=== PATIENT | male | born 1950 | race African-American/Black ===

== ENCOUNTER 2020-12-01 21:55 | Inpatient (IN) | payer MEDICARE, MEDICAID ==
[2020-12-01] MEDS ORDERED: Milk Of Magnesia 30 ML UDCUP PO PRN (23:07)
[2020-12-01] MEDS ORDERED: diphenhydrAMINE 25 MG CAP PO PRN (23:07)
[2020-12-01] MEDS ORDERED: CHLORPROMAZINE HCL 25 MG PO PRN (23:07)
[2020-12-01] MEDS ORDERED: Montelukast Sodium 10 mg Tablet PO PRN (23:07)
[2020-12-01] MEDS ORDERED: Bisacodyl 10 MG SUPP PR PRN (23:07)
[2020-12-01] MEDS ORDERED: Scopolamine 1.5 mg/72 hour Patch TD SCH (23:15)
[2020-12-01] MEDS ORDERED: Mag-Al Plus 1200 MG/1200 MG/120 MG/30 ML UDCUP PO PRN (23:23)
[2020-12-02] MEDS: Tamsulosin HCl 0.4 MG CAP PO SCH (06:00)
[2020-12-02] MEDS: Levothyroxine Sodium 50 MCG TAB PO SCH (06:01)
[2020-12-02] MEDS: Metoclopramide HCl 10 MG TAB PO SCH ×2 (08:46→21:43)
[2020-12-02] MEDS: Finasteride 5 MG TAB PO SCH (08:46)
[2020-12-02] MEDS: DorzolamidE/Timolol 2%/0.5% Ophth Soln 10 ml Bottle EA EYE SCH ×2 (08:46→21:44)
[2020-12-02] MEDS: Desmopressin 0.2 mg Tablet PO SCH ×2 (08:47→21:42)
[2020-12-02] MEDS ORDERED: Sucralfate 1 GM TAB PO SCH (09:00)
[2020-12-02] MEDS: Amlodipine 5 MG TAB PO SCH (10:46)
[2020-12-02] MEDS: Metoprolol Tartrate 25 MG TAB PO SCH ×2 (10:46→17:08)
[2020-12-02] MEDS: Sucralfate 1 GM TAB PO SCH (11:31)
[2020-12-02] MEDS: Acetaminophen/Codeine 30-300mg Tablet PO PRN (17:08)
[2020-12-02] MEDS: Rosuvastatin 10 MG TAB PO SCH (21:43)
[2020-12-02] MEDS: Melatonin 3 MG TAB PO PRN (21:43)
[2020-12-03] MEDS: Levothyroxine Sodium 50 MCG TAB PO SCH (06:31)
[2020-12-03] MEDS: Tamsulosin HCl 0.4 MG CAP PO SCH (06:31)
[2020-12-03 06:54] VITALS: BMI 26.1
[2020-12-03] MEDS: Metoclopramide HCl 10 MG TAB PO SCH ×3 (08:36→20:37)
[2020-12-03] MEDS: Amlodipine 5 MG TAB PO SCH (08:36)
[2020-12-03] MEDS: Finasteride 5 MG TAB PO SCH (08:36)
[2020-12-03] MEDS: DorzolamidE/Timolol 2%/0.5% Ophth Soln 10 ml Bottle EA EYE SCH ×2 (08:37→20:37)
[2020-12-03] MEDS: Desmopressin 0.2 mg Tablet PO SCH ×2 (08:37→20:35)
[2020-12-03] MEDS: Metoprolol Tartrate 25 MG TAB PO SCH ×2 (08:37→16:53)
[2020-12-03] MEDS: Sucralfate 1 GM TAB PO SCH (11:13)
[2020-12-03] MEDS: Scopolamine 1.5 mg/72 hour Patch TD SCH (16:53)
[2020-12-03] MEDS: Rosuvastatin 10 MG TAB PO SCH (20:36)
[2020-12-03] MEDS: tiZANidine HCl 4 MG TAB PO PRN (20:37)
[2020-12-03] MEDS: Melatonin 3 MG TAB PO PRN (20:37)
[2020-12-04] MEDS: Tamsulosin HCl 0.4 MG CAP PO SCH (05:12)
[2020-12-04] MEDS: Levothyroxine Sodium 50 MCG TAB PO SCH (05:12)
[2020-12-04] MEDS: DorzolamidE/Timolol 2%/0.5% Ophth Soln 10 ml Bottle EA EYE SCH ×2 (08:28→20:36)
[2020-12-04] MEDS: Amlodipine 5 MG TAB PO SCH (08:28)
[2020-12-04] MEDS: Desmopressin 0.2 mg Tablet PO SCH ×2 (08:28→20:35)
[2020-12-04] MEDS: Metoclopramide HCl 10 MG TAB PO SCH ×2 (08:28→20:37)
[2020-12-04] MEDS: Finasteride 5 MG TAB PO SCH (08:28)
[2020-12-04] MEDS: Metoprolol Tartrate 25 MG TAB PO SCH ×2 (08:28→17:47)
[2020-12-04] MEDS: Sucralfate 1 GM TAB PO SCH (11:22)
[2020-12-04] MEDS: Acetaminophen/Codeine 30-300mg Tablet PO PRN (11:23)
[2020-12-04] MEDS: Rosuvastatin 10 MG TAB PO SCH (20:37)
[2020-12-04] MEDS: Melatonin 3 MG TAB PO PRN (20:38)
[2020-12-05 05:36] LABS: #Basophils 0.1 thou/uL (0.0-0.2); #Eosinphils 0.1 thou/uL (0.0-0.7); #Lymphocytes 1.8 thou/uL (1.20-3.40); #Monocytes 0.6 thou/uL (0.11-0.59); #Neutrophils 3.6 thou/uL (1.40-6.50); %Basophils 1.5 % (0.0-1.0); %Lymphocytes 28.3 % (21.0-51.0); %Monocytes 9.4 % (0.0-10.0); %Neutrophils 58.8 % (42.0-75.0); Hemoglobin 12.3 g/dL (14.0-18.0); Mean Corpuscular HGB CONC 32.1 g/dL (32.0-36.0); Mean Corpuscular Hemoglobin 32.1 pg (27.0-31.0); Mean Corpuscular Volume 100.2 fL (78.0-98.0); Mean Platelet Volume 7.3 fL (7.4-10.4); Platelet Count 195 thou/uL (130-400); RBC Distribution Width 11.2 % (11.5-14.5); Red Blood Cell (RBC) Count 3.83 mill/uL (4.70-6.10); White Blood Cell (WBC) Count 6.2 thou/uL (4.8-10.8)
[2020-12-05] MEDS: Tamsulosin HCl 0.4 MG CAP PO SCH (05:41)
[2020-12-05] MEDS: Levothyroxine Sodium 50 MCG TAB PO SCH (05:41)
[2020-12-05 05:44] LABS: Anion Gap 14 mmol/L (10-20); BUN (Urea Nitrogen) 12 mg/dL (8.4-25.7); Calc. Creatinine Clearance 113 mL/min (70-130); Calcium 8.8 mg/dL (7.8-10.44); Carbon Dioxide 23 mmol/L (23-31); Chloride 109 mmol/L (98-107); Glucose 104 mg/dL (80-115); Potassium 3.5 mmol/L (3.5-5.1); Sodium 142 mmol/L (136-145)
[2020-12-05] MEDS: Amlodipine 5 MG TAB PO SCH (09:59)
[2020-12-05] MEDS: Desmopressin 0.2 mg Tablet PO SCH ×2 (10:00→20:40)
[2020-12-05] MEDS: Metoclopramide HCl 10 MG TAB PO SCH ×2 (10:01→20:39)
[2020-12-05] MEDS: Sucralfate 1 GM TAB PO SCH (10:01)
[2020-12-05] MEDS: Metoprolol Tartrate 25 MG TAB PO SCH ×2 (10:01→17:48)
[2020-12-05] MEDS: Fluticasone Propionate Nasal Spray 16 gm Bottle NASAL PRN (10:01)
[2020-12-05] MEDS: Finasteride 5 MG TAB PO SCH (10:01)
[2020-12-05] MEDS: Acetaminophen/Codeine 30-300mg Tablet PO PRN (10:02)
[2020-12-05] MEDS: DorzolamidE/Timolol 2%/0.5% Ophth Soln 10 ml Bottle EA EYE SCH ×2 (10:04→20:40)
[2020-12-05] MEDS: Melatonin 3 MG TAB PO PRN (20:40)
[2020-12-05] MEDS: Rosuvastatin 10 MG TAB PO SCH (20:43)
[2020-12-06] MEDS: Levothyroxine Sodium 50 MCG TAB PO SCH (05:30)
[2020-12-06] MEDS: Tamsulosin HCl 0.4 MG CAP PO SCH (05:30)
[2020-12-06] MEDS: Desmopressin 0.2 mg Tablet PO SCH ×2 (09:36→20:17)
[2020-12-06] MEDS: Metoclopramide HCl 10 MG TAB PO SCH ×2 (09:36→20:17)
[2020-12-06] MEDS: Finasteride 5 MG TAB PO SCH (09:36)
[2020-12-06] MEDS: Metoprolol Tartrate 25 MG TAB PO SCH ×2 (09:36→17:12)
[2020-12-06] MEDS: Amlodipine 5 MG TAB PO SCH (09:36)
[2020-12-06] MEDS: DorzolamidE/Timolol 2%/0.5% Ophth Soln 10 ml Bottle EA EYE SCH ×2 (09:37→20:17)
[2020-12-06] MEDS: Sucralfate 1 GM TAB PO SCH (12:16)
[2020-12-06] MEDS: Acetaminophen/Codeine 30-300mg Tablet PO PRN (13:37)
[2020-12-06] MEDS: Scopolamine 1.5 mg/72 hour Patch TD SCH (17:12)
[2020-12-06] MEDS: Rosuvastatin 10 MG TAB PO SCH (20:16)
[2020-12-06] MEDS: Melatonin 3 MG TAB PO PRN (20:17)
[2020-12-07] MEDS: Tamsulosin HCl 0.4 MG CAP PO SCH (05:13)
[2020-12-07] MEDS: Levothyroxine Sodium 50 MCG TAB PO SCH (05:13)
[2020-12-07] MEDS: Metoclopramide HCl 10 MG TAB PO SCH ×2 (07:59→20:33)
[2020-12-07] MEDS: Metoprolol Tartrate 25 MG TAB PO SCH ×2 (07:59→17:20)
[2020-12-07] MEDS: DorzolamidE/Timolol 2%/0.5% Ophth Soln 10 ml Bottle EA EYE SCH ×2 (07:59→20:36)
[2020-12-07] MEDS: Finasteride 5 MG TAB PO SCH (07:59)
[2020-12-07] MEDS: Amlodipine 5 MG TAB PO SCH (07:59)
[2020-12-07] MEDS: Desmopressin 0.2 mg Tablet PO SCH ×2 (08:34→20:33)
[2020-12-07] MEDS: Sucralfate 1 GM TAB PO SCH (11:43)
[2020-12-07 14:16] LABS: Bilirubin Negative (Negative); Blood, Urine Negative (Negative); Clarity Slightly Cloudy (Clear); Glucose, Urine (Dipstick) Negative (Negative); Ketone, Urine Negative (Negative); Leukocyte Negative (Negative); Nitrite Negative (Negative); Protein, Urine (Dipstick) 100 mg/dL (Neg-Trace); Specific Gravity, Urine 1.025 (1.005-1.030); Urobilinogen > or = 8.0 mg/dL (Less than 2)
[2020-12-07 14:18] LABS: Urine Culture Reflex No No
[2020-12-07 14:28] LABS: Bacteria/HPF 4+ HPF (None Seen); RBC/HPF 0-3 HPF (0-3); Squamous Epithelial 0-3 HPF (0-3); WBC/HPF 21-50 HPF (0-3)
[2020-12-07] MEDS: Acetaminophen/Codeine 30-300mg Tablet PO PRN (15:53)
[2020-12-07] MEDS: Rosuvastatin 10 MG TAB PO SCH (20:33)
[2020-12-07] MEDS: Sulfameth/Trimethoprim DS 800-160mg TAB PO SCH (20:33)
[2020-12-08] MEDS: Levothyroxine Sodium 50 MCG TAB PO SCH (05:29)
[2020-12-08] MEDS: Tamsulosin HCl 0.4 MG CAP PO SCH (05:29)
[2020-12-08] MEDS: Desmopressin 0.2 mg Tablet PO SCH ×2 (09:00→20:04)
[2020-12-08] MEDS: Sulfameth/Trimethoprim DS 800-160mg TAB PO SCH ×2 (09:01→20:05)
[2020-12-08] MEDS: Metoprolol Tartrate 25 MG TAB PO SCH ×2 (09:01→17:42)
[2020-12-08] MEDS: Finasteride 5 MG TAB PO SCH (09:01)
[2020-12-08] MEDS: Amlodipine 5 MG TAB PO SCH (09:01)
[2020-12-08] MEDS: Metoclopramide HCl 10 MG TAB PO SCH ×2 (09:01→20:05)
[2020-12-08] MEDS: DorzolamidE/Timolol 2%/0.5% Ophth Soln 10 ml Bottle EA EYE SCH ×2 (09:02→20:05)
[2020-12-08] MEDS: Fluticasone Propionate Nasal Spray 16 gm Bottle NASAL PRN (09:07)
[2020-12-08] MEDS: Acetaminophen/Codeine 30-300mg Tablet PO PRN (10:31)
[2020-12-08] MEDS: Sucralfate 1 GM TAB PO SCH (12:57)
[2020-12-08] MEDS: Melatonin 3 MG TAB PO PRN (20:04)
[2020-12-08] MEDS: Rosuvastatin 10 MG TAB PO SCH (20:04)
[2020-12-09] MEDS: Tamsulosin HCl 0.4 MG CAP PO SCH (05:28)
[2020-12-09] MEDS: Levothyroxine Sodium 50 MCG TAB PO SCH (05:28)
[2020-12-09] MEDS: DorzolamidE/Timolol 2%/0.5% Ophth Soln 10 ml Bottle EA EYE SCH ×2 (08:42→20:10)
[2020-12-09] MEDS: Acetaminophen/Codeine 30-300mg Tablet PO PRN (08:42)
[2020-12-09] MEDS: Desmopressin 0.2 mg Tablet PO SCH ×2 (08:43→20:09)
[2020-12-09] MEDS: Finasteride 5 MG TAB PO SCH (08:44)
[2020-12-09] MEDS: Metoprolol Tartrate 25 MG TAB PO SCH ×2 (08:44→17:11)
[2020-12-09] MEDS: Metoclopramide HCl 10 MG TAB PO SCH ×2 (08:44→20:10)
[2020-12-09] MEDS: Amlodipine 5 MG TAB PO SCH (08:44)
[2020-12-09] MEDS: Sulfameth/Trimethoprim DS 800-160mg TAB PO SCH ×2 (08:44→20:10)
[2020-12-09] MEDS: tiZANidine HCl 4 MG TAB PO PRN (08:44)
[2020-12-09] MEDS: Sucralfate 1 GM TAB PO SCH (12:15)
[2020-12-09] MEDS: Scopolamine 1.5 mg/72 hour Patch TD SCH (17:11)
[2020-12-09] MEDS: Rosuvastatin 10 MG TAB PO SCH (20:09)
[2020-12-09] MEDS: Melatonin 3 MG TAB PO PRN (20:10)
[2020-12-10] MEDS: Levothyroxine Sodium 50 MCG TAB PO SCH (05:03)
[2020-12-10] MEDS: Tamsulosin HCl 0.4 MG CAP PO SCH (05:03)
[2020-12-10] MEDS: Sulfameth/Trimethoprim DS 800-160mg TAB PO SCH ×2 (08:47→20:19)
[2020-12-10] MEDS: Desmopressin 0.2 mg Tablet PO SCH ×2 (08:47→20:16)
[2020-12-10] MEDS: tiZANidine HCl 4 MG TAB PO PRN (08:47)
[2020-12-10] MEDS: Amlodipine 5 MG TAB PO SCH (08:47)
[2020-12-10] MEDS: Acetaminophen/Codeine 30-300mg Tablet PO PRN (08:47)
[2020-12-10] MEDS: Finasteride 5 MG TAB PO SCH (08:47)
[2020-12-10] MEDS: Metoclopramide HCl 10 MG TAB PO SCH ×2 (08:48→20:17)
[2020-12-10] MEDS: Metoprolol Tartrate 25 MG TAB PO SCH ×2 (08:48→17:11)
[2020-12-10] MEDS: DorzolamidE/Timolol 2%/0.5% Ophth Soln 10 ml Bottle EA EYE SCH ×2 (08:49→20:17)
[2020-12-10] MEDS: Sucralfate 1 GM TAB PO SCH (12:03)
[2020-12-10] MEDS: Melatonin 3 MG TAB PO PRN (20:16)
[2020-12-10] MEDS: Rosuvastatin 10 MG TAB PO SCH (20:16)
[2020-12-11] MEDS: Levothyroxine Sodium 50 MCG TAB PO SCH (05:13)
[2020-12-11] MEDS: Tamsulosin HCl 0.4 MG CAP PO SCH (05:13)
[2020-12-11] MEDS: Amlodipine 5 MG TAB PO SCH (08:26)
[2020-12-11] MEDS: Finasteride 5 MG TAB PO SCH (08:26)
[2020-12-11] MEDS: Metoprolol Tartrate 25 MG TAB PO SCH ×2 (08:26→17:44)
[2020-12-11] MEDS: Metoclopramide HCl 10 MG TAB PO SCH (08:26)
[2020-12-11] MEDS: DorzolamidE/Timolol 2%/0.5% Ophth Soln 10 ml Bottle EA EYE SCH ×2 (08:27→23:15)
[2020-12-11] MEDS: Sulfameth/Trimethoprim DS 800-160mg TAB PO SCH ×2 (08:27→23:15)
[2020-12-11] MEDS: Desmopressin 0.2 mg Tablet PO SCH ×2 (08:27→23:14)
[2020-12-11] MEDS: Acetaminophen/Codeine 30-300mg Tablet PO PRN ×2 (10:27→17:44)
[2020-12-11] MEDS: Sucralfate 1 GM TAB PO SCH (10:27)
[2020-12-11 17:38] VITALS: BP 120/79; TEMP 97.6
[2020-12-11] MEDS: Rosuvastatin 10 MG TAB PO SCH (23:15)
== END 2020-12-12 00:30 | disposition short-term general hospital (02) | DRG 948 ==
LOC: MADMS 21:55
PROVIDERS: ADMIT Family Medicine; ATTEND Family Medicine
DX: R53.1 Weakness (principal); N30.00 Acute cystitis without hematuria; G91.9 Hydrocephalus, unspecified; D62 Acute posthemorrhagic anemia; F03.90 Unspecified dementia, unspecified severity, without behavioral disturbance, psychotic disturbance, mood disturbance, and anxiety; I10 Essential (primary) hypertension; E03.9 Hypothyroidism, unspecified; N40.1 Benign prostatic hyperplasia with lower urinary tract symptoms; F32.9 Major depressive disorder, single episode, unspecified; K21.9 Gastro-esophageal reflux disease without esophagitis; B96.1 Klebsiella pneumoniae [K. pneumoniae] as the cause of diseases classified elsewhere; R53.81 Other malaise; L72.9 Follicular cyst of the skin and subcutaneous tissue, unspecified; H40.9 Unspecified glaucoma; E78.2 Mixed hyperlipidemia; R26.81 Unsteadiness on feet; F79 Unspecified intellectual disabilities; F80.9 Developmental disorder of speech and language, unspecified; R33.8 Other retention of urine; Z98.890 Other specified postprocedural states; Z48.89 Encounter for other specified surgical aftercare; Z98.2 Presence of cerebrospinal fluid drainage device; Z79.51 Long term (current) use of inhaled steroids; Z79.899 Other long term (current) drug therapy; Y83.8 Other surgical procedures as the cause of abnormal reaction of the patient, or of later complication, without mention of misadventure at the time of the procedure
CPT/HCPCS: 36415; 70450; 80048; 81001; 85025; 87077; 87086; 87186

== ENCOUNTER 2020-12-18 10:45 | Inpatient (IN) | payer MEDICARE, MEDICAID ==
[2020-12-18] MEDS ORDERED: Montelukast Sodium 10 mg Tablet PO PRN (23:51)
[2020-12-18] MEDS ORDERED: Milk Of Magnesia 30 ML UDCUP PO PRN (23:51)
[2020-12-19] MEDS ORDERED: Mag-Al Plus 1200 MG/1200 MG/120 MG/30 ML UDCUP PO PRN (00:03)
[2020-12-19] MEDS ORDERED: Desmopressin 0.2 mg Tablet PO SCH ×2 (00:15→09:00)
[2020-12-19 03:32] LABS: Bilirubin Negative (Negative); Blood, Urine Large (Negative); Clarity Clear (Clear); Glucose, Urine (Dipstick) Negative (Negative); Ketone, Urine Negative (Negative); Leukocyte Negative (Negative); Nitrite Negative (Negative); Protein, Urine (Dipstick) > or equal to 300 mg/dL (Neg-Trace); Urobilinogen 0.2 mg/dL (Less than 2)
[2020-12-19 03:33] LABS: Bacteria/HPF Rare-Few HPF (None Seen); RBC/HPF Greater than 50 HPF (0-3); Specific Gravity, Urine 1.026 (1.002-1.036); Squamous Epithelial 0-3 HPF (0-3); WBC/HPF 0-3 HPF (0-3)
[2020-12-19] MEDS: Levothyroxine Sodium 50 MCG TAB PO SCH (05:50)
[2020-12-19] MEDS: Tamsulosin HCl 0.4 MG CAP PO SCH (05:50)
[2020-12-19 08:03] LABS: #Basophils 0.1 thou/uL (0.0-0.2); #Lymphocytes 1.4 thou/uL (1.20-3.40); #Monocytes 0.4 thou/uL (0.11-0.59); #Neutrophils 2.3 thou/uL (1.40-6.50); %Basophils 1.7 % (0.0-1.0); %Eosinophils 1.1 % (0.0-10.0); %Lymphocytes 32.7 % (21.0-51.0); %Monocytes 10.1 % (0.0-10.0); %Neutrophils 54.4 % (42.0-75.0); Hemoglobin 12.7 g/dL (14.0-18.0); Mean Corpuscular HGB CONC 31.2 g/dL (32.0-36.0); Mean Corpuscular Hemoglobin 31.1 pg (27.0-31.0); Mean Corpuscular Volume 99.7 fL (78.0-98.0); Mean Platelet Volume 7.1 fL (7.4-10.4); Platelet Count 220 thou/uL (130-400); RBC Distribution Width 10.7 % (11.5-14.5); Red Blood Cell (RBC) Count 4.07 mill/uL (4.70-6.10); White Blood Cell (WBC) Count 4.2 thou/uL (4.8-10.8)
[2020-12-19 08:11] LABS: Anion Gap 12 mmol/L (10-20); BUN (Urea Nitrogen) 18 mg/dL (8.4-25.7); Calc. Creatinine Clearance 91 mL/min (70-130); Calcium 9.2 mg/dL (7.8-10.44); Carbon Dioxide 24 mmol/L (23-31); Chloride 104 mmol/L (98-107); Glucose 98 mg/dL (80-115); Sodium 136 mmol/L (136-145)
[2020-12-19] MEDS ORDERED: DorzolamidE/Timolol 2%/0.5% Ophth Soln 10 ml Bottle EA EYE SCH (09:00)
[2020-12-19] MEDS: Amlodipine 5 MG TAB PO SCH (09:57)
[2020-12-19] MEDS: Cyanocobalamin (Vitamin B-12) 1,000 MCG TAB PO SCH (09:59)
[2020-12-19] MEDS: Cefdinir 300 MG CAP PO SCH ×2 (09:59→20:12)
[2020-12-19] MEDS: Sucralfate 1 GM TAB PO SCH (10:01)
[2020-12-19] MEDS: Saccharomyces boulardii 250 MG CAP PO SCH (10:01)
[2020-12-19] MEDS: Finasteride 5 MG TAB PO SCH (10:02)
[2020-12-19] MEDS: Multivitamin W/ Minerals 1 TAB PO SCH (10:02)
[2020-12-19] MEDS: Folic Acid 1 MG TAB PO SCH (10:09)
[2020-12-19] MEDS: DorzolamidE/Timolol 2%/0.5% Ophth Soln 10 ml Bottle EA EYE SCH ×2 (10:30→20:14)
[2020-12-19] MEDS: Rosuvastatin 10 MG TAB PO SCH (20:12)
[2020-12-19] MEDS: Bisacodyl 10 MG SUPP PR PRN (20:21)
[2020-12-19] MEDS ORDERED: Non-Formulary Item 1 EACH (Rosuvastatin [Crestor] 20 MG Tab) PO SCH (21:00)
[2020-12-20] MEDS: Levothyroxine Sodium 50 MCG TAB PO SCH (05:17)
[2020-12-20] MEDS: Tamsulosin HCl 0.4 MG CAP PO SCH (05:17)
[2020-12-20] MEDS: Cyanocobalamin (Vitamin B-12) 1,000 MCG TAB PO SCH (08:20)
[2020-12-20] MEDS: Amlodipine 5 MG TAB PO SCH (08:20)
[2020-12-20] MEDS: Folic Acid 1 MG TAB PO SCH (08:20)
[2020-12-20] MEDS: Finasteride 5 MG TAB PO SCH (08:20)
[2020-12-20] MEDS: Sucralfate 1 GM TAB PO SCH (08:21)
[2020-12-20] MEDS: DorzolamidE/Timolol 2%/0.5% Ophth Soln 10 ml Bottle EA EYE SCH ×2 (08:21→20:48)
[2020-12-20] MEDS: Saccharomyces boulardii 250 MG CAP PO SCH (08:21)
[2020-12-20] MEDS: Multivitamin W/ Minerals 1 TAB PO SCH (08:21)
[2020-12-20] MEDS: Rosuvastatin 10 MG TAB PO SCH (20:48)
[2020-12-21] MEDS: Levothyroxine Sodium 50 MCG TAB PO SCH (07:12)
[2020-12-21] MEDS: Tamsulosin HCl 0.4 MG CAP PO SCH (07:12)
[2020-12-21] MEDS: Folic Acid 1 MG TAB PO SCH (08:04)
[2020-12-21] MEDS: Amlodipine 5 MG TAB PO SCH (08:04)
[2020-12-21] MEDS: Multivitamin W/ Minerals 1 TAB PO SCH (08:04)
[2020-12-21] MEDS: Saccharomyces boulardii 250 MG CAP PO SCH (08:04)
[2020-12-21] MEDS: Finasteride 5 MG TAB PO SCH (08:04)
[2020-12-21] MEDS: Sucralfate 1 GM TAB PO SCH (08:04)
[2020-12-21] MEDS: Cyanocobalamin (Vitamin B-12) 1,000 MCG TAB PO SCH (08:05)
[2020-12-21] MEDS: DorzolamidE/Timolol 2%/0.5% Ophth Soln 10 ml Bottle EA EYE SCH ×2 (08:08→21:43)
[2020-12-21] MEDS: Rosuvastatin 10 MG TAB PO SCH (20:33)
[2020-12-22] MEDS: Levothyroxine Sodium 50 MCG TAB PO SCH (05:13)
[2020-12-22] MEDS: Tamsulosin HCl 0.4 MG CAP PO SCH (05:13)
[2020-12-22] MEDS: Acetaminophen 325 MG TAB PO PRN ×2 (09:03→15:08)
[2020-12-22] MEDS: Amlodipine 5 MG TAB PO SCH (09:05)
[2020-12-22] MEDS: Saccharomyces boulardii 250 MG CAP PO SCH (09:05)
[2020-12-22] MEDS: Finasteride 5 MG TAB PO SCH (09:05)
[2020-12-22] MEDS: Multivitamin W/ Minerals 1 TAB PO SCH (09:06)
[2020-12-22] MEDS: Cyanocobalamin (Vitamin B-12) 1,000 MCG TAB PO SCH (09:06)
[2020-12-22] MEDS: Folic Acid 1 MG TAB PO SCH (09:06)
[2020-12-22] MEDS: Fluticasone Propionate Nasal Spray 16 gm Bottle NASAL PRN (09:06)
[2020-12-22] MEDS: Sucralfate 1 GM TAB PO SCH (09:06)
[2020-12-22] MEDS: DorzolamidE/Timolol 2%/0.5% Ophth Soln 10 ml Bottle EA EYE SCH ×2 (09:06→20:41)
[2020-12-22] MEDS: Nystatin 500,000 UNITS/5 ML UDCUP SSP SCH (17:24)
[2020-12-22] MEDS: Rosuvastatin 10 MG TAB PO SCH (20:40)
[2020-12-23] MEDS: Nystatin 500,000 UNITS/5 ML UDCUP SSP SCH ×5 (00:24→23:50)
[2020-12-23] MEDS: Tamsulosin HCl 0.4 MG CAP PO SCH (05:32)
[2020-12-23] MEDS: Levothyroxine Sodium 50 MCG TAB PO SCH (05:33)
[2020-12-23] MEDS: Ferrous Sulfate 325 MG TAB PO SCH (08:31)
[2020-12-23] MEDS: Amlodipine 5 MG TAB PO SCH (08:32)
[2020-12-23] MEDS: Finasteride 5 MG TAB PO SCH (08:33)
[2020-12-23] MEDS: DorzolamidE/Timolol 2%/0.5% Ophth Soln 10 ml Bottle EA EYE SCH ×2 (08:33→20:00)
[2020-12-23] MEDS: Cyanocobalamin (Vitamin B-12) 1,000 MCG TAB PO SCH (08:33)
[2020-12-23] MEDS: Folic Acid 1 MG TAB PO SCH (08:34)
[2020-12-23] MEDS: Sucralfate 1 GM TAB PO SCH (08:34)
[2020-12-23] MEDS: Saccharomyces boulardii 250 MG CAP PO SCH (08:34)
[2020-12-23] MEDS: Rosuvastatin 10 MG TAB PO SCH (20:00)
[2020-12-24] MEDS: Nystatin 500,000 UNITS/5 ML UDCUP SSP SCH ×4 (05:05→23:48)
[2020-12-24] MEDS: Levothyroxine Sodium 50 MCG TAB PO SCH (05:06)
[2020-12-24] MEDS: Tamsulosin HCl 0.4 MG CAP PO SCH (05:06)
[2020-12-24] MEDS: Ferrous Sulfate 325 MG TAB PO SCH (09:52)
[2020-12-24] MEDS: Cyanocobalamin (Vitamin B-12) 1,000 MCG TAB PO SCH (09:52)
[2020-12-24] MEDS: Folic Acid 1 MG TAB PO SCH (09:53)
[2020-12-24] MEDS: Amlodipine 5 MG TAB PO SCH (09:53)
[2020-12-24] MEDS: Finasteride 5 MG TAB PO SCH (09:53)
[2020-12-24] MEDS: Saccharomyces boulardii 250 MG CAP PO SCH (09:53)
[2020-12-24] MEDS: Sucralfate 1 GM TAB PO SCH (09:53)
[2020-12-24] MEDS: DorzolamidE/Timolol 2%/0.5% Ophth Soln 10 ml Bottle EA EYE SCH ×2 (09:53→20:51)
[2020-12-24] MEDS: Rosuvastatin 10 MG TAB PO SCH (20:51)
[2020-12-25] MEDS: Tamsulosin HCl 0.4 MG CAP PO SCH ×2 (05:55→20:09)
[2020-12-25] MEDS: Nystatin 500,000 UNITS/5 ML UDCUP SSP SCH ×3 (05:55→18:03)
[2020-12-25] MEDS: Levothyroxine Sodium 50 MCG TAB PO SCH (05:55)
[2020-12-25] MEDS: Amlodipine 5 MG TAB PO SCH (09:27)
[2020-12-25] MEDS: Folic Acid 1 MG TAB PO SCH (09:27)
[2020-12-25] MEDS: Finasteride 5 MG TAB PO SCH (09:29)
[2020-12-25] MEDS: Sucralfate 1 GM TAB PO SCH ×2 (09:29→16:37)
[2020-12-25] MEDS: Cyanocobalamin (Vitamin B-12) 1,000 MCG TAB PO SCH (09:29)
[2020-12-25] MEDS: Ferrous Sulfate 325 MG TAB PO SCH (09:29)
[2020-12-25] MEDS: Saccharomyces boulardii 250 MG CAP PO SCH (09:29)
[2020-12-25] MEDS: DorzolamidE/Timolol 2%/0.5% Ophth Soln 10 ml Bottle EA EYE SCH ×2 (09:30→20:09)
[2020-12-25] MEDS: Acetaminophen 325 MG TAB PO PRN (11:29)
[2020-12-25] MEDS: Rosuvastatin 10 MG TAB PO SCH (20:08)
[2020-12-26] MEDS: Nystatin 500,000 UNITS/5 ML UDCUP SSP SCH ×5 (00:45→23:11)
[2020-12-26] MEDS: Levothyroxine Sodium 50 MCG TAB PO SCH (05:10)
[2020-12-26] MEDS: Tamsulosin HCl 0.4 MG CAP PO SCH ×2 (08:31→19:59)
[2020-12-26] MEDS: Ferrous Sulfate 325 MG TAB PO SCH (08:32)
[2020-12-26] MEDS: Saccharomyces boulardii 250 MG CAP PO SCH (08:32)
[2020-12-26] MEDS: Cyanocobalamin (Vitamin B-12) 1,000 MCG TAB PO SCH (08:32)
[2020-12-26] MEDS: Amlodipine 5 MG TAB PO SCH (08:34)
[2020-12-26] MEDS: Sucralfate 1 GM TAB PO SCH ×2 (08:34→16:38)
[2020-12-26] MEDS: Finasteride 5 MG TAB PO SCH (08:34)
[2020-12-26] MEDS: Folic Acid 1 MG TAB PO SCH (08:34)
[2020-12-26] MEDS: DorzolamidE/Timolol 2%/0.5% Ophth Soln 10 ml Bottle EA EYE SCH ×2 (08:47→19:59)
[2020-12-26] MEDS: Rosuvastatin 10 MG TAB PO SCH (19:59)
[2020-12-26] MEDS: Bisacodyl 10 MG SUPP PR PRN (23:11)
[2020-12-27] MEDS: Nystatin 500,000 UNITS/5 ML UDCUP SSP SCH ×3 (05:13→17:40)
[2020-12-27] MEDS: Levothyroxine Sodium 50 MCG TAB PO SCH (05:14)
[2020-12-27] MEDS: Saccharomyces boulardii 250 MG CAP PO SCH (09:16)
[2020-12-27] MEDS: Amlodipine 5 MG TAB PO SCH (09:16)
[2020-12-27] MEDS: Folic Acid 1 MG TAB PO SCH (09:24)
[2020-12-27] MEDS: Sucralfate 1 GM TAB PO SCH ×2 (09:24→17:40)
[2020-12-27] MEDS: Cyanocobalamin (Vitamin B-12) 1,000 MCG TAB PO SCH (09:24)
[2020-12-27] MEDS: Finasteride 5 MG TAB PO SCH (09:24)
[2020-12-27] MEDS: Tamsulosin HCl 0.4 MG CAP PO SCH ×2 (09:24→20:57)
[2020-12-27] MEDS: Ferrous Sulfate 325 MG TAB PO SCH (09:24)
[2020-12-27] MEDS: DorzolamidE/Timolol 2%/0.5% Ophth Soln 10 ml Bottle EA EYE SCH ×2 (09:25→20:55)
[2020-12-27] MEDS: Rosuvastatin 10 MG TAB PO SCH (20:56)
[2020-12-28] MEDS: Nystatin 500,000 UNITS/5 ML UDCUP SSP SCH ×4 (00:16→18:27)
[2020-12-28] MEDS: Levothyroxine Sodium 50 MCG TAB PO SCH (05:05)
[2020-12-28] MEDS: Finasteride 5 MG TAB PO SCH (08:49)
[2020-12-28] MEDS: Saccharomyces boulardii 250 MG CAP PO SCH (08:49)
[2020-12-28] MEDS: Amlodipine 5 MG TAB PO SCH (08:50)
[2020-12-28] MEDS: Folic Acid 1 MG TAB PO SCH (08:50)
[2020-12-28] MEDS: DorzolamidE/Timolol 2%/0.5% Ophth Soln 10 ml Bottle EA EYE SCH ×2 (08:50→21:07)
[2020-12-28] MEDS: Cyanocobalamin (Vitamin B-12) 1,000 MCG TAB PO SCH (08:50)
[2020-12-28] MEDS: Tamsulosin HCl 0.4 MG CAP PO SCH ×2 (08:50→21:07)
[2020-12-28] MEDS: Sucralfate 1 GM TAB PO SCH ×2 (08:50→17:02)
[2020-12-28] MEDS: Ferrous Sulfate 325 MG TAB PO SCH (08:50)
[2020-12-28] MEDS: Rosuvastatin 10 MG TAB PO SCH (21:07)
[2020-12-29] MEDS: Nystatin 500,000 UNITS/5 ML UDCUP SSP SCH ×4 (00:42→17:28)
[2020-12-29] MEDS: Levothyroxine Sodium 50 MCG TAB PO SCH (05:19)
[2020-12-29] MEDS: Sucralfate 1 GM TAB PO SCH ×2 (05:19→17:28)
[2020-12-29] MEDS: Tamsulosin HCl 0.4 MG CAP PO SCH ×2 (08:56→21:01)
[2020-12-29] MEDS: Ferrous Sulfate 325 MG TAB PO SCH (08:56)
[2020-12-29] MEDS: Finasteride 5 MG TAB PO SCH (08:57)
[2020-12-29] MEDS: Amlodipine 5 MG TAB PO SCH (08:57)
[2020-12-29] MEDS: Folic Acid 1 MG TAB PO SCH (08:57)
[2020-12-29] MEDS: Cyanocobalamin (Vitamin B-12) 1,000 MCG TAB PO SCH (08:57)
[2020-12-29] MEDS: DorzolamidE/Timolol 2%/0.5% Ophth Soln 10 ml Bottle EA EYE SCH ×2 (08:57→21:00)
[2020-12-29] MEDS: Saccharomyces boulardii 250 MG CAP PO SCH (08:57)
[2020-12-29] MEDS: Rosuvastatin 10 MG TAB PO SCH (21:01)
[2020-12-30] MEDS: Nystatin 500,000 UNITS/5 ML UDCUP SSP SCH ×5 (01:03→23:46)
[2020-12-30] MEDS: Levothyroxine Sodium 50 MCG TAB PO SCH (05:40)
[2020-12-30] MEDS: Sucralfate 1 GM TAB PO SCH ×2 (05:40→16:48)
[2020-12-30] MEDS: Ferrous Sulfate 325 MG TAB PO SCH (08:46)
[2020-12-30] MEDS: Folic Acid 1 MG TAB PO SCH (08:46)
[2020-12-30] MEDS: Cyanocobalamin (Vitamin B-12) 1,000 MCG TAB PO SCH (08:47)
[2020-12-30] MEDS: Finasteride 5 MG TAB PO SCH (08:47)
[2020-12-30] MEDS: Tamsulosin HCl 0.4 MG CAP PO SCH ×2 (08:47→21:02)
[2020-12-30] MEDS: Saccharomyces boulardii 250 MG CAP PO SCH (08:47)
[2020-12-30] MEDS: Amlodipine 5 MG TAB PO SCH (08:47)
[2020-12-30] MEDS: DorzolamidE/Timolol 2%/0.5% Ophth Soln 10 ml Bottle EA EYE SCH ×2 (08:47→21:01)
[2020-12-30] MEDS: Acetaminophen 325 MG TAB PO PRN (21:02)
[2020-12-30] MEDS: Rosuvastatin 10 MG TAB PO SCH (21:02)
[2020-12-31] MEDS: Levothyroxine Sodium 50 MCG TAB PO SCH (05:53)
[2020-12-31] MEDS: Sucralfate 1 GM TAB PO SCH ×2 (05:53→16:47)
[2020-12-31] MEDS: Nystatin 500,000 UNITS/5 ML UDCUP SSP SCH ×4 (05:53→23:15)
[2020-12-31] MEDS: Finasteride 5 MG TAB PO SCH (08:30)
[2020-12-31] MEDS: Amlodipine 5 MG TAB PO SCH (08:30)
[2020-12-31] MEDS: Saccharomyces boulardii 250 MG CAP PO SCH (08:30)
[2020-12-31] MEDS: Folic Acid 1 MG TAB PO SCH (08:30)
[2020-12-31] MEDS: Tamsulosin HCl 0.4 MG CAP PO SCH ×2 (08:30→21:41)
[2020-12-31] MEDS: Cyanocobalamin (Vitamin B-12) 1,000 MCG TAB PO SCH (08:30)
[2020-12-31] MEDS: Ferrous Sulfate 325 MG TAB PO SCH (08:30)
[2020-12-31] MEDS: DorzolamidE/Timolol 2%/0.5% Ophth Soln 10 ml Bottle EA EYE SCH ×2 (08:31→21:41)
[2020-12-31] MEDS: Acetaminophen 325 MG TAB PO PRN (21:41)
[2020-12-31] MEDS: Rosuvastatin 10 MG TAB PO SCH (21:41)
[2021-01-01] MEDS: Sucralfate 1 GM TAB PO SCH ×2 (05:30→17:15)
[2021-01-01] MEDS: Levothyroxine Sodium 50 MCG TAB PO SCH (05:30)
[2021-01-01] MEDS: Nystatin 500,000 UNITS/5 ML UDCUP SSP SCH ×4 (05:30→23:51)
[2021-01-01] MEDS: Folic Acid 1 MG TAB PO SCH (08:38)
[2021-01-01] MEDS: Finasteride 5 MG TAB PO SCH (08:38)
[2021-01-01] MEDS: Tamsulosin HCl 0.4 MG CAP PO SCH ×2 (08:38→20:11)
[2021-01-01] MEDS: Ferrous Sulfate 325 MG TAB PO SCH (08:38)
[2021-01-01] MEDS: DorzolamidE/Timolol 2%/0.5% Ophth Soln 10 ml Bottle EA EYE SCH ×2 (08:38→20:11)
[2021-01-01] MEDS: Acetaminophen 325 MG TAB PO PRN (08:39)
[2021-01-01] MEDS: Amlodipine 5 MG TAB PO SCH (08:40)
[2021-01-01] MEDS: Cyanocobalamin (Vitamin B-12) 1,000 MCG TAB PO SCH (08:41)
[2021-01-01] MEDS: Saccharomyces boulardii 250 MG CAP PO SCH (08:41)
[2021-01-01] MEDS: Rosuvastatin 10 MG TAB PO SCH (20:11)
[2021-01-02] MEDS: Nystatin 500,000 UNITS/5 ML UDCUP SSP SCH ×3 (05:27→17:18)
[2021-01-02] MEDS: Levothyroxine Sodium 50 MCG TAB PO SCH (05:27)
[2021-01-02] MEDS: Sucralfate 1 GM TAB PO SCH ×2 (05:59→16:35)
[2021-01-02] MEDS: Amlodipine 5 MG TAB PO SCH (08:12)
[2021-01-02] MEDS: Folic Acid 1 MG TAB PO SCH (08:12)
[2021-01-02] MEDS: Tamsulosin HCl 0.4 MG CAP PO SCH ×2 (08:12→20:30)
[2021-01-02] MEDS: DorzolamidE/Timolol 2%/0.5% Ophth Soln 10 ml Bottle EA EYE SCH ×2 (08:12→20:31)
[2021-01-02] MEDS: Finasteride 5 MG TAB PO SCH (08:12)
[2021-01-02] MEDS: Cyanocobalamin (Vitamin B-12) 1,000 MCG TAB PO SCH (08:12)
[2021-01-02] MEDS: Saccharomyces boulardii 250 MG CAP PO SCH (08:12)
[2021-01-02] MEDS: Ferrous Sulfate 325 MG TAB PO SCH (08:13)
[2021-01-02] MEDS: Rosuvastatin 10 MG TAB PO SCH (20:30)
[2021-01-02] MEDS ORDERED: Acetaminophen 325 MG TAB PO PRN (21:35)
[2021-01-03] MEDS: Nystatin 500,000 UNITS/5 ML UDCUP SSP SCH ×4 (00:11→17:10)
[2021-01-03] MEDS: Levothyroxine Sodium 50 MCG TAB PO SCH (05:11)
[2021-01-03] MEDS: Sucralfate 1 GM TAB PO SCH ×2 (06:10→15:30)
[2021-01-03] MEDS: Amlodipine 5 MG TAB PO SCH (08:11)
[2021-01-03] MEDS: Saccharomyces boulardii 250 MG CAP PO SCH (08:11)
[2021-01-03] MEDS: Ferrous Sulfate 325 MG TAB PO SCH (08:11)
[2021-01-03] MEDS: Finasteride 5 MG TAB PO SCH (08:11)
[2021-01-03] MEDS: Tamsulosin HCl 0.4 MG CAP PO SCH ×2 (08:11→20:45)
[2021-01-03] MEDS: Folic Acid 1 MG TAB PO SCH (08:11)
[2021-01-03] MEDS: Cyanocobalamin (Vitamin B-12) 1,000 MCG TAB PO SCH (08:12)
[2021-01-03] MEDS: DorzolamidE/Timolol 2%/0.5% Ophth Soln 10 ml Bottle EA EYE SCH ×2 (08:12→20:46)
[2021-01-03] MEDS: Rosuvastatin 10 MG TAB PO SCH (20:45)
[2021-01-04] MEDS: Nystatin 500,000 UNITS/5 ML UDCUP SSP SCH ×5 (00:50→23:38)
[2021-01-04] MEDS: Sucralfate 1 GM TAB PO SCH ×2 (05:39→16:56)
[2021-01-04] MEDS: Levothyroxine Sodium 50 MCG TAB PO SCH (05:39)
[2021-01-04] MEDS: Saccharomyces boulardii 250 MG CAP PO SCH (08:19)
[2021-01-04] MEDS: Tamsulosin HCl 0.4 MG CAP PO SCH ×2 (08:19→21:16)
[2021-01-04] MEDS: Cyanocobalamin (Vitamin B-12) 1,000 MCG TAB PO SCH (08:19)
[2021-01-04] MEDS: Ferrous Sulfate 325 MG TAB PO SCH (08:19)
[2021-01-04] MEDS: Amlodipine 5 MG TAB PO SCH (08:19)
[2021-01-04] MEDS: Finasteride 5 MG TAB PO SCH (08:19)
[2021-01-04] MEDS: Folic Acid 1 MG TAB PO SCH (08:20)
[2021-01-04] MEDS: DorzolamidE/Timolol 2%/0.5% Ophth Soln 10 ml Bottle EA EYE SCH ×2 (08:21→21:19)
[2021-01-04] MEDS: Rosuvastatin 10 MG TAB PO SCH (21:15)
[2021-01-04] MEDS: Acetaminophen 325 MG TAB PO PRN (21:16)
[2021-01-05] MEDS: Nystatin 500,000 UNITS/5 ML UDCUP SSP SCH ×3 (05:16→17:18)
[2021-01-05] MEDS: Sucralfate 1 GM TAB PO SCH ×2 (05:16→17:18)
[2021-01-05] MEDS: Levothyroxine Sodium 50 MCG TAB PO SCH (05:16)
[2021-01-05] MEDS: Cyanocobalamin (Vitamin B-12) 1,000 MCG TAB PO SCH (08:36)
[2021-01-05] MEDS: Amlodipine 5 MG TAB PO SCH (08:36)
[2021-01-05] MEDS: Folic Acid 1 MG TAB PO SCH (08:36)
[2021-01-05] MEDS: Ferrous Sulfate 325 MG TAB PO SCH (08:36)
[2021-01-05] MEDS: Tamsulosin HCl 0.4 MG CAP PO SCH ×2 (08:36→20:23)
[2021-01-05] MEDS: Finasteride 5 MG TAB PO SCH (08:36)
[2021-01-05] MEDS: Saccharomyces boulardii 250 MG CAP PO SCH (08:37)
[2021-01-05] MEDS: Acetaminophen 500 MG TAB PO PRN (08:37)
[2021-01-05] MEDS: DorzolamidE/Timolol 2%/0.5% Ophth Soln 10 ml Bottle EA EYE SCH ×2 (08:39→20:23)
[2021-01-05] MEDS: Rosuvastatin 10 MG TAB PO SCH (20:23)
[2021-01-06] MEDS: Nystatin 500,000 UNITS/5 ML UDCUP SSP SCH ×5 (01:05→23:24)
[2021-01-06] MEDS: Sucralfate 1 GM TAB PO SCH ×2 (05:45→17:18)
[2021-01-06] MEDS: Levothyroxine Sodium 50 MCG TAB PO SCH (05:45)
[2021-01-06] MEDS: Finasteride 5 MG TAB PO SCH (08:30)
[2021-01-06] MEDS: Folic Acid 1 MG TAB PO SCH (08:30)
[2021-01-06] MEDS: Amlodipine 5 MG TAB PO SCH (08:30)
[2021-01-06] MEDS: DorzolamidE/Timolol 2%/0.5% Ophth Soln 10 ml Bottle EA EYE SCH ×2 (08:30→20:28)
[2021-01-06] MEDS: Tamsulosin HCl 0.4 MG CAP PO SCH ×2 (08:30→20:28)
[2021-01-06] MEDS: Cyanocobalamin (Vitamin B-12) 1,000 MCG TAB PO SCH (08:30)
[2021-01-06] MEDS: Ferrous Sulfate 325 MG TAB PO SCH (08:30)
[2021-01-06] MEDS: Saccharomyces boulardii 250 MG CAP PO SCH (08:30)
[2021-01-06] MEDS: Acetaminophen 325 MG TAB PO PRN (08:32)
[2021-01-06] MEDS: Rosuvastatin 10 MG TAB PO SCH (20:28)
[2021-01-07] MEDS: Levothyroxine Sodium 50 MCG TAB PO SCH (05:31)
[2021-01-07] MEDS: Sucralfate 1 GM TAB PO SCH ×2 (05:31→17:07)
[2021-01-07] MEDS: Nystatin 500,000 UNITS/5 ML UDCUP SSP SCH ×4 (05:31→23:00)
[2021-01-07] MEDS: Tamsulosin HCl 0.4 MG CAP PO SCH ×2 (09:35→20:09)
[2021-01-07] MEDS: Folic Acid 1 MG TAB PO SCH (09:35)
[2021-01-07] MEDS: Finasteride 5 MG TAB PO SCH (09:35)
[2021-01-07] MEDS: Amlodipine 5 MG TAB PO SCH (09:35)
[2021-01-07] MEDS: Cyanocobalamin (Vitamin B-12) 1,000 MCG TAB PO SCH (09:35)
[2021-01-07] MEDS: DorzolamidE/Timolol 2%/0.5% Ophth Soln 10 ml Bottle EA EYE SCH ×2 (09:35→20:10)
[2021-01-07] MEDS: Ferrous Sulfate 325 MG TAB PO SCH (09:35)
[2021-01-07] MEDS: Saccharomyces boulardii 250 MG CAP PO SCH (09:35)
[2021-01-07] MEDS: Rosuvastatin 10 MG TAB PO SCH (20:09)
[2021-01-08] MEDS: Levothyroxine Sodium 50 MCG TAB PO SCH (05:09)
[2021-01-08] MEDS: Nystatin 500,000 UNITS/5 ML UDCUP SSP SCH ×3 (05:09→17:43)
[2021-01-08] MEDS: Sucralfate 1 GM TAB PO SCH ×2 (05:29→15:37)
[2021-01-08] MEDS ORDERED: Magnesium Citrate 300 ML BOT ONE (08:37)
[2021-01-08] MEDS: Cyanocobalamin (Vitamin B-12) 1,000 MCG TAB PO SCH (09:22)
[2021-01-08] MEDS: Amlodipine 5 MG TAB PO SCH (09:22)
[2021-01-08] MEDS: Ferrous Sulfate 325 MG TAB PO SCH (09:22)
[2021-01-08] MEDS: Saccharomyces boulardii 250 MG CAP PO SCH (09:22)
[2021-01-08] MEDS: Folic Acid 1 MG TAB PO SCH (09:22)
[2021-01-08] MEDS: Finasteride 5 MG TAB PO SCH (09:22)
[2021-01-08] MEDS: Fluticasone Propionate Nasal Spray 16 gm Bottle NASAL PRN (09:23)
[2021-01-08] MEDS: Tamsulosin HCl 0.4 MG CAP PO SCH ×2 (09:23→20:32)
[2021-01-08] MEDS: DorzolamidE/Timolol 2%/0.5% Ophth Soln 10 ml Bottle EA EYE SCH ×2 (09:23→20:32)
[2021-01-08] MEDS ORDERED: Mag-Al Plus 1200 MG/1200 MG/120 MG/30 ML UDCUP PO PRN (13:46)
[2021-01-08] MEDS ORDERED: Polyethylene Glycol 3350 17 GM Packet PO PRN (13:46)
[2021-01-08] MEDS: Rosuvastatin 10 MG TAB PO SCH (20:32)
[2021-01-08] MEDS: Acetaminophen 325 MG TAB PO PRN (20:33)
[2021-01-09] MEDS: Nystatin 500,000 UNITS/5 ML UDCUP SSP SCH ×4 (00:19→17:11)
[2021-01-09] MEDS: Sucralfate 1 GM TAB PO SCH ×2 (05:33→17:10)
[2021-01-09] MEDS: Levothyroxine Sodium 50 MCG TAB PO SCH (05:33)
[2021-01-09] MEDS: DorzolamidE/Timolol 2%/0.5% Ophth Soln 10 ml Bottle EA EYE SCH ×2 (08:22→20:29)
[2021-01-09] MEDS: Folic Acid 1 MG TAB PO SCH (08:23)
[2021-01-09] MEDS: Amlodipine 5 MG TAB PO SCH (08:23)
[2021-01-09] MEDS: Finasteride 5 MG TAB PO SCH (08:23)
[2021-01-09] MEDS: Cyanocobalamin (Vitamin B-12) 1,000 MCG TAB PO SCH (08:23)
[2021-01-09] MEDS: Ferrous Sulfate 325 MG TAB PO SCH (08:23)
[2021-01-09] MEDS: Saccharomyces boulardii 250 MG CAP PO SCH (08:23)
[2021-01-09] MEDS: Tamsulosin HCl 0.4 MG CAP PO SCH ×2 (08:23→20:29)
[2021-01-09] MEDS: Rosuvastatin 10 MG TAB PO SCH (20:29)
[2021-01-10] MEDS: Nystatin 500,000 UNITS/5 ML UDCUP SSP SCH ×3 (00:19→13:06)
[2021-01-10 05:21] LABS: Hemoglobin 11.3 g/dL (14.0-18.0); Mean Corpuscular HGB CONC 32.3 g/dL (32.0-36.0); Mean Corpuscular Hemoglobin 32.3 pg (27.0-31.0); Mean Corpuscular Volume 100.1 fL (78.0-98.0); Mean Platelet Volume 7.3 fL (7.4-10.4); Platelet Count 180 thou/uL (130-400); RBC Distribution Width 11.7 % (11.5-14.5); Red Blood Cell (RBC) Count 3.49 mill/uL (4.70-6.10); White Blood Cell (WBC) Count 5.9 thou/uL (4.8-10.8)
[2021-01-10] MEDS: Levothyroxine Sodium 50 MCG TAB PO SCH (05:30)
[2021-01-10] MEDS: Sucralfate 1 GM TAB PO SCH ×2 (05:30→16:42)
[2021-01-10] MEDS: Amlodipine 5 MG TAB PO SCH (08:14)
[2021-01-10] MEDS: Ferrous Sulfate 325 MG TAB PO SCH (08:14)
[2021-01-10] MEDS: Cyanocobalamin (Vitamin B-12) 1,000 MCG TAB PO SCH (08:17)
[2021-01-10] MEDS: Finasteride 5 MG TAB PO SCH (08:17)
[2021-01-10] MEDS: Folic Acid 1 MG TAB PO SCH (08:17)
[2021-01-10] MEDS: Saccharomyces boulardii 250 MG CAP PO SCH (08:17)
[2021-01-10] MEDS: Tamsulosin HCl 0.4 MG CAP PO SCH ×2 (08:17→19:59)
[2021-01-10] MEDS: DorzolamidE/Timolol 2%/0.5% Ophth Soln 10 ml Bottle EA EYE SCH ×2 (08:22→19:59)
[2021-01-10] MEDS: Rosuvastatin 10 MG TAB PO SCH (19:59)
[2021-01-11] MEDS: Levothyroxine Sodium 50 MCG TAB PO SCH (05:41)
[2021-01-11] MEDS: Sucralfate 1 GM TAB PO SCH ×2 (05:41→16:04)
[2021-01-11] MEDS: Finasteride 5 MG TAB PO SCH (08:24)
[2021-01-11] MEDS: Ferrous Sulfate 325 MG TAB PO SCH (08:24)
[2021-01-11] MEDS: Folic Acid 1 MG TAB PO SCH (08:25)
[2021-01-11] MEDS: Saccharomyces boulardii 250 MG CAP PO SCH (08:25)
[2021-01-11] MEDS: DorzolamidE/Timolol 2%/0.5% Ophth Soln 10 ml Bottle EA EYE SCH ×2 (08:25→22:31)
[2021-01-11] MEDS: Tamsulosin HCl 0.4 MG CAP PO SCH ×2 (08:25→22:30)
[2021-01-11] MEDS: Cyanocobalamin (Vitamin B-12) 1,000 MCG TAB PO SCH (08:25)
[2021-01-11] MEDS: Amlodipine 5 MG TAB PO SCH (08:26)
[2021-01-11] MEDS: Rosuvastatin 10 MG TAB PO SCH (22:30)
[2021-01-11] MEDS: Acetaminophen 325 MG TAB PO PRN (22:30)
[2021-01-12] MEDS: Levothyroxine Sodium 50 MCG TAB PO SCH (05:27)
[2021-01-12] MEDS: Sucralfate 1 GM TAB PO SCH ×2 (05:29→16:41)
[2021-01-12] MEDS: Finasteride 5 MG TAB PO SCH (08:08)
[2021-01-12] MEDS: Tamsulosin HCl 0.4 MG CAP PO SCH ×2 (08:08→20:35)
[2021-01-12] MEDS: Ferrous Sulfate 325 MG TAB PO SCH (08:08)
[2021-01-12] MEDS: Folic Acid 1 MG TAB PO SCH (08:08)
[2021-01-12] MEDS: Saccharomyces boulardii 250 MG CAP PO SCH (08:08)
[2021-01-12] MEDS: Amlodipine 5 MG TAB PO SCH (08:08)
[2021-01-12] MEDS: Cyanocobalamin (Vitamin B-12) 1,000 MCG TAB PO SCH (08:08)
[2021-01-12] MEDS: DorzolamidE/Timolol 2%/0.5% Ophth Soln 10 ml Bottle EA EYE SCH ×2 (08:09→20:36)
[2021-01-12] MEDS: Acetaminophen 325 MG TAB PO PRN ×2 (12:27→20:36)
[2021-01-12] MEDS: Rosuvastatin 10 MG TAB PO SCH (20:35)
[2021-01-13] MEDS: Levothyroxine Sodium 50 MCG TAB PO SCH (05:34)
[2021-01-13] MEDS: Sucralfate 1 GM TAB PO SCH ×2 (05:34→16:14)
[2021-01-13] MEDS: Folic Acid 1 MG TAB PO SCH (08:20)
[2021-01-13] MEDS: Saccharomyces boulardii 250 MG CAP PO SCH (08:20)
[2021-01-13] MEDS: DorzolamidE/Timolol 2%/0.5% Ophth Soln 10 ml Bottle EA EYE SCH ×2 (08:20→20:51)
[2021-01-13] MEDS: Finasteride 5 MG TAB PO SCH (08:20)
[2021-01-13] MEDS: Amlodipine 5 MG TAB PO SCH (08:20)
[2021-01-13] MEDS: Cyanocobalamin (Vitamin B-12) 1,000 MCG TAB PO SCH (08:20)
[2021-01-13] MEDS: Tamsulosin HCl 0.4 MG CAP PO SCH ×2 (08:20→20:50)
[2021-01-13] MEDS: Ferrous Sulfate 325 MG TAB PO SCH (08:20)
[2021-01-13] MEDS: Rosuvastatin 10 MG TAB PO SCH (20:50)
[2021-01-13] MEDS: Acetaminophen 325 MG TAB PO PRN (20:50)
[2021-01-14] MEDS: Sucralfate 1 GM TAB PO SCH ×2 (05:31→16:26)
[2021-01-14] MEDS: Levothyroxine Sodium 50 MCG TAB PO SCH (05:31)
[2021-01-14] MEDS: Saccharomyces boulardii 250 MG CAP PO SCH (08:14)
[2021-01-14] MEDS: DorzolamidE/Timolol 2%/0.5% Ophth Soln 10 ml Bottle EA EYE SCH ×2 (08:14→20:33)
[2021-01-14] MEDS: Amlodipine 5 MG TAB PO SCH (08:15)
[2021-01-14] MEDS: Folic Acid 1 MG TAB PO SCH (08:15)
[2021-01-14] MEDS: Tamsulosin HCl 0.4 MG CAP PO SCH ×2 (08:15→20:33)
[2021-01-14] MEDS: Ferrous Sulfate 325 MG TAB PO SCH (08:15)
[2021-01-14] MEDS: Finasteride 5 MG TAB PO SCH (08:15)
[2021-01-14] MEDS: Cyanocobalamin (Vitamin B-12) 1,000 MCG TAB PO SCH (08:16)
[2021-01-14] MEDS: Rosuvastatin 10 MG TAB PO SCH (20:33)
[2021-01-14] MEDS: Acetaminophen 325 MG TAB PO PRN (20:36)
[2021-01-15] MEDS: Sucralfate 1 GM TAB PO SCH ×2 (05:29→16:28)
[2021-01-15] MEDS: Levothyroxine Sodium 50 MCG TAB PO SCH (05:29)
[2021-01-15] MEDS: Ferrous Sulfate 325 MG TAB PO SCH (08:29)
[2021-01-15] MEDS: DorzolamidE/Timolol 2%/0.5% Ophth Soln 10 ml Bottle EA EYE SCH ×2 (08:30→20:13)
[2021-01-15] MEDS: Tamsulosin HCl 0.4 MG CAP PO SCH ×2 (08:30→20:13)
[2021-01-15] MEDS: Finasteride 5 MG TAB PO SCH (08:30)
[2021-01-15] MEDS: Amlodipine 5 MG TAB PO SCH (08:30)
[2021-01-15] MEDS: Cyanocobalamin (Vitamin B-12) 1,000 MCG TAB PO SCH (08:30)
[2021-01-15] MEDS: Saccharomyces boulardii 250 MG CAP PO SCH (08:30)
[2021-01-15] MEDS: Folic Acid 1 MG TAB PO SCH (08:30)
[2021-01-15] MEDS: Acetaminophen 500 MG TAB PO PRN (12:08)
[2021-01-15] MEDS: Senokot S 8.6-50 MG TAB PO PRN (20:13)
[2021-01-15] MEDS: Rosuvastatin 10 MG TAB PO SCH (20:13)
[2021-01-16] MEDS: Sucralfate 1 GM TAB PO SCH ×2 (05:36→17:09)
[2021-01-16] MEDS: Levothyroxine Sodium 50 MCG TAB PO SCH (05:36)
[2021-01-16] MEDS: Milk Of Magnesia 30 ML UDCUP PO PRN (07:55)
[2021-01-16] MEDS: Ferrous Sulfate 325 MG TAB PO SCH (07:55)
[2021-01-16] MEDS: Saccharomyces boulardii 250 MG CAP PO SCH (07:59)
[2021-01-16] MEDS: Amlodipine 5 MG TAB PO SCH (07:59)
[2021-01-16] MEDS: Tamsulosin HCl 0.4 MG CAP PO SCH ×2 (07:59→20:12)
[2021-01-16] MEDS: Finasteride 5 MG TAB PO SCH (08:00)
[2021-01-16] MEDS: Cyanocobalamin (Vitamin B-12) 1,000 MCG TAB PO SCH (08:00)
[2021-01-16] MEDS: Folic Acid 1 MG TAB PO SCH (08:00)
[2021-01-16] MEDS: DorzolamidE/Timolol 2%/0.5% Ophth Soln 10 ml Bottle EA EYE SCH ×2 (08:01→20:12)
[2021-01-16] MEDS: Rosuvastatin 10 MG TAB PO SCH (20:12)
[2021-01-16] MEDS: Senokot S 8.6-50 MG TAB PO PRN (20:14)
[2021-01-17] MEDS: Levothyroxine Sodium 50 MCG TAB PO SCH (05:30)
[2021-01-17] MEDS: Sucralfate 1 GM TAB PO SCH ×2 (05:35→16:20)
[2021-01-17] MEDS: Finasteride 5 MG TAB PO SCH (08:13)
[2021-01-17] MEDS: Tamsulosin HCl 0.4 MG CAP PO SCH ×2 (08:13→21:13)
[2021-01-17] MEDS: Folic Acid 1 MG TAB PO SCH (08:13)
[2021-01-17] MEDS: DorzolamidE/Timolol 2%/0.5% Ophth Soln 10 ml Bottle EA EYE SCH ×2 (08:13→21:13)
[2021-01-17] MEDS: Ferrous Sulfate 325 MG TAB PO SCH (08:13)
[2021-01-17] MEDS: Amlodipine 5 MG TAB PO SCH (08:13)
[2021-01-17] MEDS: Cyanocobalamin (Vitamin B-12) 1,000 MCG TAB PO SCH (08:14)
[2021-01-17] MEDS: Saccharomyces boulardii 250 MG CAP PO SCH (08:14)
[2021-01-17] MEDS: Fluticasone Propionate Nasal Spray 16 gm Bottle NASAL PRN (21:13)
[2021-01-17] MEDS: Rosuvastatin 10 MG TAB PO SCH (21:14)
[2021-01-17] MEDS: Senokot S 8.6-50 MG TAB PO PRN (21:14)
[2021-01-18] MEDS: Sucralfate 1 GM TAB PO SCH ×2 (06:01→16:40)
[2021-01-18] MEDS: Levothyroxine Sodium 50 MCG TAB PO SCH (06:01)
[2021-01-18] MEDS: DorzolamidE/Timolol 2%/0.5% Ophth Soln 10 ml Bottle EA EYE SCH ×2 (07:56→20:07)
[2021-01-18] MEDS: Ferrous Sulfate 325 MG TAB PO SCH (08:01)
[2021-01-18] MEDS: Tamsulosin HCl 0.4 MG CAP PO SCH ×2 (08:01→20:08)
[2021-01-18] MEDS: Saccharomyces boulardii 250 MG CAP PO SCH (08:01)
[2021-01-18] MEDS: Folic Acid 1 MG TAB PO SCH (08:01)
[2021-01-18] MEDS: Finasteride 5 MG TAB PO SCH (08:01)
[2021-01-18] MEDS: Amlodipine 5 MG TAB PO SCH (08:01)
[2021-01-18] MEDS: Cyanocobalamin (Vitamin B-12) 1,000 MCG TAB PO SCH (08:01)
[2021-01-18] MEDS: Milk Of Magnesia 30 ML UDCUP PO PRN (08:14)
[2021-01-18] MEDS: Rosuvastatin 10 MG TAB PO SCH (20:08)
[2021-01-18] MEDS: Polyethylene Glycol 3350 17 GM Packet PO SCH (20:08)
[2021-01-19] MEDS: Levothyroxine Sodium 50 MCG TAB PO SCH (05:33)
[2021-01-19] MEDS: Sucralfate 1 GM TAB PO SCH ×2 (05:33→16:01)
[2021-01-19] MEDS: DorzolamidE/Timolol 2%/0.5% Ophth Soln 10 ml Bottle EA EYE SCH ×2 (09:30→20:03)
[2021-01-19] MEDS: Fluticasone Propionate Nasal Spray 16 gm Bottle NASAL PRN (09:30)
[2021-01-19] MEDS: Folic Acid 1 MG TAB PO SCH (09:31)
[2021-01-19] MEDS: Ferrous Sulfate 325 MG TAB PO SCH (09:31)
[2021-01-19] MEDS: Saccharomyces boulardii 250 MG CAP PO SCH (09:31)
[2021-01-19] MEDS: Amlodipine 5 MG TAB PO SCH (09:31)
[2021-01-19] MEDS: Cyanocobalamin (Vitamin B-12) 1,000 MCG TAB PO SCH (09:31)
[2021-01-19] MEDS: Finasteride 5 MG TAB PO SCH (09:31)
[2021-01-19] MEDS: Tamsulosin HCl 0.4 MG CAP PO SCH ×2 (09:31→20:05)
[2021-01-19] MEDS: Polyethylene Glycol 3350 17 GM Packet PO SCH (20:03)
[2021-01-19] MEDS: Rosuvastatin 10 MG TAB PO SCH (20:03)
[2021-01-20] MEDS: Levothyroxine Sodium 50 MCG TAB PO SCH (06:00)
[2021-01-20] MEDS: Sucralfate 1 GM TAB PO SCH ×3 (06:00→15:34)
[2021-01-20] MEDS: Ferrous Sulfate 325 MG TAB PO SCH (08:58)
[2021-01-20] MEDS: Amlodipine 5 MG TAB PO SCH (08:59)
[2021-01-20] MEDS: Folic Acid 1 MG TAB PO SCH (08:59)
[2021-01-20] MEDS: Finasteride 5 MG TAB PO SCH (08:59)
[2021-01-20] MEDS: Tamsulosin HCl 0.4 MG CAP PO SCH ×2 (08:59→20:18)
[2021-01-20] MEDS: DorzolamidE/Timolol 2%/0.5% Ophth Soln 10 ml Bottle EA EYE SCH ×2 (09:00→20:17)
[2021-01-20] MEDS: Cyanocobalamin (Vitamin B-12) 1,000 MCG TAB PO SCH (09:00)
[2021-01-20] MEDS: Saccharomyces boulardii 250 MG CAP PO SCH (09:00)
[2021-01-20] MEDS: Rosuvastatin 10 MG TAB PO SCH (20:18)
[2021-01-20] MEDS: Polyethylene Glycol 3350 17 GM Packet PO SCH (20:18)
[2021-01-21] MEDS: Levothyroxine Sodium 50 MCG TAB PO SCH (05:38)
[2021-01-21] MEDS: Sucralfate 1 GM TAB PO SCH ×2 (05:38→17:20)
[2021-01-21] MEDS: Ferrous Sulfate 325 MG TAB PO SCH (09:18)
[2021-01-21] MEDS: Amlodipine 5 MG TAB PO SCH (09:18)
[2021-01-21] MEDS: Saccharomyces boulardii 250 MG CAP PO SCH (09:18)
[2021-01-21] MEDS: Tamsulosin HCl 0.4 MG CAP PO SCH ×2 (09:19→20:52)
[2021-01-21] MEDS: DorzolamidE/Timolol 2%/0.5% Ophth Soln 10 ml Bottle EA EYE SCH ×2 (09:19→20:48)
[2021-01-21] MEDS: Cyanocobalamin (Vitamin B-12) 1,000 MCG TAB PO SCH (09:19)
[2021-01-21] MEDS: Folic Acid 1 MG TAB PO SCH (09:19)
[2021-01-21] MEDS: Finasteride 5 MG TAB PO SCH (09:19)
[2021-01-21] MEDS: Acetaminophen 500 MG TAB PO PRN (14:49)
[2021-01-21] MEDS: Senokot S 8.6-50 MG TAB PO PRN (17:19)
[2021-01-21] MEDS: Polyethylene Glycol 3350 17 GM Packet PO SCH (20:48)
[2021-01-21] MEDS: Rosuvastatin 10 MG TAB PO SCH (20:49)
[2021-01-22] MEDS: Sucralfate 1 GM TAB PO SCH ×2 (05:30→17:06)
[2021-01-22] MEDS: Levothyroxine Sodium 50 MCG TAB PO SCH (05:30)
[2021-01-22] MEDS: Ferrous Sulfate 325 MG TAB PO SCH ×2 (09:03→13:21)
[2021-01-22] MEDS: Amlodipine 5 MG TAB PO SCH ×2 (10:16→13:21)
[2021-01-22] MEDS: DorzolamidE/Timolol 2%/0.5% Ophth Soln 10 ml Bottle EA EYE SCH ×3 (10:16→20:11)
[2021-01-22] MEDS: Cyanocobalamin (Vitamin B-12) 1,000 MCG TAB PO SCH ×2 (10:16→13:22)
[2021-01-22] MEDS: Tamsulosin HCl 0.4 MG CAP PO SCH ×3 (10:17→20:19)
[2021-01-22] MEDS: Finasteride 5 MG TAB PO SCH ×2 (10:17→13:22)
[2021-01-22] MEDS: Folic Acid 1 MG TAB PO SCH ×2 (10:17→13:21)
[2021-01-22] MEDS: Saccharomyces boulardii 250 MG CAP PO SCH ×2 (10:17→13:21)
[2021-01-22 10:41] VITALS: BMI 19.9
[2021-01-22] MEDS: Polyethylene Glycol 3350 17 GM Packet PO SCH (20:12)
[2021-01-22] MEDS: Rosuvastatin 10 MG TAB PO SCH (20:19)
[2021-01-23] MEDS: Levothyroxine Sodium 50 MCG TAB PO SCH (05:54)
[2021-01-23] MEDS: Sucralfate 1 GM TAB PO SCH ×2 (05:55→16:28)
[2021-01-23] MEDS: Amlodipine 5 MG TAB PO SCH (08:43)
[2021-01-23] MEDS: DorzolamidE/Timolol 2%/0.5% Ophth Soln 10 ml Bottle EA EYE SCH ×2 (08:43→20:11)
[2021-01-23] MEDS: Ferrous Sulfate 325 MG TAB PO SCH (08:43)
[2021-01-23] MEDS: Folic Acid 1 MG TAB PO SCH (08:43)
[2021-01-23] MEDS: Senokot S 8.6-50 MG TAB PO PRN (08:43)
[2021-01-23] MEDS: Tamsulosin HCl 0.4 MG CAP PO SCH ×2 (08:43→20:15)
[2021-01-23] MEDS: Finasteride 5 MG TAB PO SCH (08:43)
[2021-01-23] MEDS: Saccharomyces boulardii 250 MG CAP PO SCH (08:43)
[2021-01-23] MEDS: Cyanocobalamin (Vitamin B-12) 1,000 MCG TAB PO SCH (08:43)
[2021-01-23] MEDS: Polyethylene Glycol 3350 17 GM Packet PO SCH (20:11)
[2021-01-23] MEDS: Rosuvastatin 10 MG TAB PO SCH (20:12)
[2021-01-24] MEDS: Sucralfate 1 GM TAB PO SCH ×2 (06:03→17:02)
[2021-01-24] MEDS: Levothyroxine Sodium 50 MCG TAB PO SCH (06:04)
[2021-01-24] MEDS: Folic Acid 1 MG TAB PO SCH (08:10)
[2021-01-24] MEDS: Cyanocobalamin (Vitamin B-12) 1,000 MCG TAB PO SCH (08:10)
[2021-01-24] MEDS: Ferrous Sulfate 325 MG TAB PO SCH (08:10)
[2021-01-24] MEDS: Tamsulosin HCl 0.4 MG CAP PO SCH ×2 (08:10→20:24)
[2021-01-24] MEDS: Saccharomyces boulardii 250 MG CAP PO SCH (08:10)
[2021-01-24] MEDS: Amlodipine 5 MG TAB PO SCH (08:10)
[2021-01-24] MEDS: Finasteride 5 MG TAB PO SCH (08:10)
[2021-01-24] MEDS: DorzolamidE/Timolol 2%/0.5% Ophth Soln 10 ml Bottle EA EYE SCH ×2 (08:11→20:24)
[2021-01-24] MEDS: Rosuvastatin 10 MG TAB PO SCH (20:24)
[2021-01-24] MEDS: Polyethylene Glycol 3350 17 GM Packet PO SCH (20:24)
[2021-01-25] MEDS: Sucralfate 1 GM TAB PO SCH ×2 (05:44→16:08)
[2021-01-25] MEDS: Levothyroxine Sodium 50 MCG TAB PO SCH (05:44)
[2021-01-25] MEDS: Folic Acid 1 MG TAB PO SCH (08:08)
[2021-01-25] MEDS: Saccharomyces boulardii 250 MG CAP PO SCH (08:08)
[2021-01-25] MEDS: Amlodipine 5 MG TAB PO SCH (08:08)
[2021-01-25] MEDS: Cyanocobalamin (Vitamin B-12) 1,000 MCG TAB PO SCH (08:08)
[2021-01-25] MEDS: Finasteride 5 MG TAB PO SCH (08:08)
[2021-01-25] MEDS: Tamsulosin HCl 0.4 MG CAP PO SCH ×2 (08:08→20:31)
[2021-01-25] MEDS: Ferrous Sulfate 325 MG TAB PO SCH (08:08)
[2021-01-25] MEDS: DorzolamidE/Timolol 2%/0.5% Ophth Soln 10 ml Bottle EA EYE SCH ×2 (08:10→20:30)
[2021-01-25] MEDS: Polyethylene Glycol 3350 17 GM Packet PO SCH (20:30)
[2021-01-25] MEDS: Rosuvastatin 10 MG TAB PO SCH (20:31)
[2021-01-26] MEDS: Levothyroxine Sodium 50 MCG TAB PO SCH (05:43)
[2021-01-26] MEDS: Sucralfate 1 GM TAB PO SCH (05:43)
[2021-01-26] MEDS: Finasteride 5 MG TAB PO SCH (09:02)
[2021-01-26] MEDS: Ferrous Sulfate 325 MG TAB PO SCH (09:02)
[2021-01-26] MEDS: Tamsulosin HCl 0.4 MG CAP PO SCH (09:02)
[2021-01-26] MEDS: Saccharomyces boulardii 250 MG CAP PO SCH (09:02)
[2021-01-26] MEDS: Cyanocobalamin (Vitamin B-12) 1,000 MCG TAB PO SCH (09:02)
[2021-01-26] MEDS: Amlodipine 5 MG TAB PO SCH (09:02)
[2021-01-26] MEDS: Folic Acid 1 MG TAB PO SCH (09:02)
[2021-01-26] MEDS: DorzolamidE/Timolol 2%/0.5% Ophth Soln 10 ml Bottle EA EYE SCH (09:05)
[2021-01-26 11:03] VITALS: BP 115/70; TEMP 98.2
== END 2021-01-26 13:00 | disposition home or self-care (01) | DRG 949 ==
LOC: MADMS 10:45
PROVIDERS: ADMIT Family Medicine; ATTEND Family Medicine
DX: Z48.811 Encounter for surgical aftercare following surgery on the nervous system (principal); D62 Acute posthemorrhagic anemia; G91.9 Hydrocephalus, unspecified; R53.81 Other malaise; R27.8 Other lack of coordination; N40.1 Benign prostatic hyperplasia with lower urinary tract symptoms; R39.14 Feeling of incomplete bladder emptying; I10 Essential (primary) hypertension; E03.9 Hypothyroidism, unspecified; E78.2 Mixed hyperlipidemia; F79 Unspecified intellectual disabilities; F80.9 Developmental disorder of speech and language, unspecified; H40.2290 Chronic angle-closure glaucoma, unspecified eye, stage unspecified; K21.9 Gastro-esophageal reflux disease without esophagitis; R33.8 Other retention of urine; R26.81 Unsteadiness on feet; Z97.8 Presence of other specified devices; Z98.890 Other specified postprocedural states; Z79.899 Other long term (current) drug therapy
CPT/HCPCS: 36415; 80048; 85025; 85027; 87086; 90471; 90732; G0009